=== PATIENT | male | born 1940 | race Caucasian/White ===

== ENCOUNTER → 2017-02-17 | Outpatient (CLI) | payer OTHER | LOC: FLAB 15:08 → FIMAGING 15:08 → EDSTATUS 15:09 | PROVIDERS: ATTEND Internal Medicine | DX: R05 Cough (principal) ==

== ENCOUNTER → 2017-05-20 | Outpatient (CLI) | payer OTHER | LOC: BHFA 08:30 | PROVIDERS: ATTEND Internal Medicine Cardiovascular Disease | DX: R06.02 Shortness of breath (principal); I35.1 Nonrheumatic aortic (valve) insufficiency | CPT/HCPCS: 78452; 93017; 93306; A9500; J2785 ==

== ENCOUNTER → 2017-07-31 | Outpatient (CLI) | payer OTHER | LOC: FIMAGING 14:46 | PROVIDERS: ATTEND Internal Medicine | DX: M75.121 Complete rotator cuff tear or rupture of right shoulder, not specified as traumatic (principal); M75.31 Calcific tendinitis of right shoulder ==

== ENCOUNTER → 2017-08-05 | Outpatient (CLI) | payer OTHER | LOC: FIMAGING 16:50 | PROVIDERS: ATTEND Internal Medicine | DX: T14.8XXA Other injury of unspecified body region, initial encounter (principal) ==

== ENCOUNTER 2017-10-21 00:53 | Emergency (ER) | payer OTHER ==
--- NOTE | 2017-10-21 01:30 | CPEKG ---
Heart Rate: 75 RR Interval: 800 P-R Interval: 268 QRSD Interval: 102 QT Interval: 424 QTC Interval: 474 P [place]: 57 QRS [place]: 79 T Wave [place]: -56 EKG Severity - ABNORMAL ECG - EKG Impression: SINUS RHYTHM EKG Impression: FIRST DEGREE AV BLOCK EKG Impression: NONSPECIFIC T ABNORMALITIES, INFERIOR LEADS Electronically Signed By: Shahbaz Beltran 21-Oct-2017 06:53:47
[2017-10-21 01:40] LABS: PLATELET COUNT 179 10^3/uL (150-400)
--- NOTE | 2017-10-21 02:40 | EDPHY ---
H & P Stated Complaint: bilat arm numbness when in bed and feels hot Time Seen by Provider: 10/21/17 01:12 HPI/ROS: Chief Complaint: Left arm numbness HPI: 76-year-old male woke up this morning with bilateral hand numbness. This lasted for few minutes to a change position. He then weight on his left hand side. He then fell asleep on his left side for while and developed numbness in his left arm from his elbow down. He sat up and the numbness went away. He then laid down on his right hand side and once again his left arm became numb. After sitting up it went away again. He has never had this happen before. He is concerned that this might represent a problem with his heart because it is his left arm. He does have a history of coronary artery disease and congestive heart failure. He had a negative catheterization about 2 years ago. No recent illness. No fevers or chills. No chest pain or shortness of breath. No nausea or vomiting. No fainting or clammy feeling. ROS: 10 point Review of Systems is negative except as noted in the HPI. Social History: No smoking, no alcohol, no recreational drug use Family History: non-contributory Physical Exam: Gen: Awake, Alert, No Distress HEENT: Nose: no rhinorrhea Eyes: PERRLA, EOMI Mouth: Moist mucosa Neck: Supple, no JVD Chest: nontender, lungs clear to auscultation Heart: S1, S2 normal, no murmur Abd: Soft, non-tender, no guarding Back: no CVA tenderness, no midline tenderness Ext: no edema, non-tender, 2+ radial ulnar pulses bilaterally. Capillary refills less than 2 sec. Sensations intact in the radial, median, and ulnar nerve distribution bilaterally Skin: no rash Neuro: CN II-XII intact, Sensation grossly intact, Strength 5/5 in bilateral upper and lower extremities - Personal History Current Tetanus/Diphtheria Vaccine: No Current Tetanus Diphtheria and Acellular Pertussis (TDAP): No - Medical/Surgical History Hx Asthma: Yes Hx Chronic Respiratory Disease: No Hx Diabetes: No Hx Cardiac Disease: Yes Hx Renal Disease: No Hx Cirrhosis: No Hx Alcoholism: No Hx HIV/AIDS: No Hx Splenectomy or Spleen Trauma: No Other PMH: Gout, asthma, hearing los, arthritismultiple knee surgeries, TIA, spinal stenosis, 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 CPAP for apnea, CHF - Social History Smoking Status: Former smoker Constitutional: Initial Vital Signs Temperature (C) 37.0 C 10/21/17 00:54 Heart Rate 79 10/21/17 00:54 Respiratory Rate 16 10/21/17 00:54 Blood Pressure 113/69 10/21/17 00:54 O2 Sat (%) 96 10/21/17 00:54 O2 Delivery Mode Room Air Allergies/Adverse Reactions: No Known Allergies Allergy (Verified 10/21/17 00:59) Home Medications: Medication Instructions Recorded Allopurinol [Allopurinol 300 MG 300 mg PO DAILY 10/08/14 (RX)] FEXOFENADINE HCL 60 mg PO DAILY PRN 03/22/16 guaiFENesin [Mucinex 600 MG (*)] 600 mg PO DAILY PRN 03/22/16 Aspirin [Aspirin 81mg (*)] 81 mg PO DAILY #30 tab 03/23/16 Atorvastatin Calcium [Lipitor 20 20 mg PO DAILY #30 tab 03/23/16 mg (*)] Furosemide [Lasix 20 MG (*)] 20 mg PO DAILY #30 tab 03/23/16 ALBUTEROL SULFATE 10/21/17 Singulair 10/21/17 Medical Decision Making - Diagnostics EKG Interpretation: ECG time 1:28 a.m., sinus rhythm with a rate of 75. There is a first-degree AV block. There are nonspecific T-wave abnormalities in inferior leads. This ECG is completely unchanged from 03/22/2016. ED Course/Re-evaluation: 76-year-old male presenting with left arm numbness and tingling while he was sleeping which resolved when he got up to move around. Did not think this is a focal neurologic deficit. He is concerned however a that it could represent heart disease given his history of coronary artery disease and CHF. His initial troponin is elevated, , however in reviewing his records he is always elevated as this is not uncommon for him. Plan will be to repeat troponin and several hours to ensure that it is not rising. If it is in going down I suspect that he can be discharged with a simple numbness from sleeping on his arm in an awkward position. 0600 patient remained symptom free. Repeat troponin is lower. No evidence of acute coronary syndrome at this time. No acute ECG changes. Patient's symptoms have completely resolved. He will be discharged with follow up with primary care physician. There is no evidence of acute CVA, cervical radiculopathy, carpal tunnel, acute coronary syndrome, dissection, or other vascular neurological process at this time. - Data Points Laboratory Results: Laboratory Results 10/21/17 01:30 10/21/17 01:30 10/21/17 10/21/17 10/21/17 05:00 01:30 01:30 WBC 6.09 10^3/uL 10^3/uL (3.80-9.50) RBC 3.76 10^6/uL L 10^6/uL (4.40-6.38) Hgb 12.9 g/dL L g/dL (13.7-17.5) Hct 38.8 % L % (40.0-51.0) MCV 103.2 fL H fL (81.5-99.8) MCH 34.3 pg H pg (27.9-34.1) MCHC 33.2 g/dL g/dL (32.4-36.7) RDW 14.3 % % (11.5-15.2) Plt Count 179 10^3/uL 10^3/uL (150-400) MPV 9.7 fL fL (8.7-11.7) Neut % (Auto) 51.1 % % (39.3-74.2) Lymph % (Auto) 34.6 % % (15.0-45.0) [place] % (Auto) 11.0 % % (4.5-13.0) Eos % (Auto) 2.5 % % (0.6-7.6) Baso % (Auto) 0.5 % % (0.3-1.7) Nucleat RBC Rel Count 0.0 % % (0.0-0.2) Absolute Neuts (auto) 3.11 10^3/uL 10^3/uL (1.70-6.50) Absolute Lymphs (auto) 2.11 10^3/uL 10^3/uL (1.00-3.00) Absolute Monos (auto) 0.67 10^3/uL 10^3/uL (0.30-0.80) Absolute Eos (auto) 0.15 10^3/uL 10^3/uL (0.03-0.40) Absolute Basos (auto) 0.03 10^3/uL 10^3/uL (0.02-0.10) Absolute Nucleated RBC 0.00 10^3/uL 10^3/uL (0-0.01) Immature Gran % 0.3 % % (0.0-1.1) Immature Gran # 0.02 10^3/uL 10^3/uL (0.00-0.10) Sodium 140 mEq/L mEq/L (135-145) Potassium 4.4 mEq/L mEq/L (3.3-5.0) Chloride 102 mEq/L mEq/L (97-110) Carbon Dioxide 25 mEq/l mEq/l (22-31) Anion Gap 13 mEq/L mEq/L (8-16) BUN 36 mg/dL H mg/dL (7-23) Creatinine 1.4 mg/dL H mg/dL (0.7-1.3) Estimated GFR 49 Glucose 94 mg/dL mg/dL (70-100) Calcium 8.6 mg/dL mg/dL (8.5-10.4) Troponin I 0.085 ng/mL H ng/mL 0.094 ng/mL H ng/mL (0.000-0.034) (0.000-0.034) Departure - Departure Disposition: Home, Routine, Self-Care Clinical Impression: Paresthesia Condition: Good Instructions: Paresthesia (ED) Additional Instructions: Follow up with primary care physician in 2-3 days for further evaluation. Return to the emergency depart for worsening numbness, weakness, chest pain, shortness of breath, or any other concerns. Referrals: Silas Aguilar MD [Primary Care Provider] - As per Instructions
[2017-10-21 06:23] VITALS: BP 103/60
== END 2017-10-21 06:21 | disposition home or self-care (01) ==
DX: R20.2 Paresthesia of skin (principal); J45.909 Unspecified asthma, uncomplicated; Z79.82 Long term (current) use of aspirin; Z87.891 Personal history of nicotine dependence

== ENCOUNTER → 2018-07-27 | Outpatient (CLI) | payer OTHER | LOC: BHFA 10:00 | PROVIDERS: ATTEND Internal Medicine Cardiovascular Disease | DX: R06.02 Shortness of breath (principal) ==

== ENCOUNTER → 2018-09-02 | Outpatient (CLI) | payer OTHER | LOC: BHLMT 17:00 ==

== ENCOUNTER 2018-09-30 07:34 | Day surgery (SDC) | payer OTHER ==
[2018-09-30] MEDS ORDERED: DIAZEPAM 5 MG TAB PO ONE (07:37)
[2018-09-30] MEDS ORDERED: diphenhydrAMINE 25 MG CAP PO ONE (07:37)
[2018-09-30] MEDS ORDERED: NS 1,000 ML IV ONE (07:37)
[2018-09-30] MEDS ORDERED: FAMOTIDINE 20 MG TAB PO ONE (07:37)
[2018-09-30] MEDS ORDERED: ASPIRIN EC 325 MG TAB PO ONE (07:37)
[2018-09-30] MEDS ORDERED: IOPAMIDOL (ISOVUE-370) 150 ML BTL IV ONE (08:38)
[2018-09-30] MEDS ORDERED: MIDAZOLAM 2 MG/2 ML VIAL ONE (08:38)
[2018-09-30] MEDS ORDERED: LIDOCAINE 1% 300 MG/30 ML SDV ONE (08:38)
[2018-09-30] MEDS ORDERED: fentaNYL 100 MCG/2 ML INJ ONE (08:38)
[2018-09-30] MEDS ORDERED: ONDANSETRON 4 MG/2 ML VIAL IVP PRN (10:06)
[2018-09-30] MEDS ORDERED: NITROGLYCERIN 0.4 MG BTL SL PRN (10:06)
[2018-09-30] MEDS ORDERED: ATROPINE SULFATE 1 MG/10 ML SYR IVP PRN (10:06)
== END 2018-09-30 14:30 | disposition home or self-care (01) ==
DX: E85.4 Organ-limited amyloidosis (principal); I43 Cardiomyopathy in diseases classified elsewhere; I50.32 Chronic diastolic (congestive) heart failure; I11.0 Hypertensive heart disease with heart failure; I51.7 Cardiomegaly; R27.0 Ataxia, unspecified; J45.909 Unspecified asthma, uncomplicated; I25.10 Atherosclerotic heart disease of native coronary artery without angina pectoris; G47.33 Obstructive sleep apnea (adult) (pediatric)